=== PATIENT | female | born 1995 | race Caucasian/White ===

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

== ENCOUNTER → 2017-07-21 02:13 | Observation (INO) ==
--- NOTE | 2017-07-21 01:19 | OB/GYN Progress Note ---
Date of Encounter: 07/21/17 Time of Encounter: 01:16 - Assessment and Plan (1) 36 weeks gestation of Current Visit: Yes Status: Acute (2) Encounter for suspected PROM, with rupture of membranes not found Current Visit: Yes Status: Acute Speculum exam shows thick white vaginal discharge, negative ferning, negative pooling, negative nitrazine No change on serial cervical exams, discharged home with when to return to triage, and labor precautions. Patient verbalizes understanding (3) Decreased movement Current Visit: Yes Status: Acute Patient states arriving feels active fetus, reactive tracing Qualifiers: Fetus number: single or unspecified fetus Trimester: third trimester Qualified Code(s): O36.8130 - Decreased movements, third trimester, not applicable or unspecified Subjective - Subjective Interval history: 36+2 weeks gestation presents to triage with complaints of leaking of fluid since 6 PM, Patient states she went to the restroom and then was going again to her shower and felt small gush of fluid go down her leg, no leaking of fluid since. Adequate movement earlier today, has not felt any movement since gush of fluid. Denies vaginal bleeding, or contractions Antepartum ROS: loss of fluid, no vaginal bleeding, no movement normal, no contractions Objective - Exam FHR: auscultation normal FHR comments: Baseline 150 Abdomen: Present: normal appearance, soft, gravid Uterus: Present: normal Cervical dilation: 360/-2
[2017-07-21 01:21] LABS: Amphetamine Screen,Urine Negative ng/mL (Cutoff=1000); Barbiturate Screen,Urine Negative ng/mL (Cutoff=200); Benzodiazepines Screen,Urine Negative ng/mL (Cutoff=200); Cannabinoid Screen,Urine Negative ng/mL (Cutoff = 50); Cocaine Screen,Urine Negative ng/mL (Cutoff= 300); Opiate Screen,Urine Negative ng/mL (Cutoff=300); Phencyclidine Screen,Urine Negative ng/mL (Cutoff=25)
[2017-07-21 02:16] LABS: Gardnerella DNA Not Detected (Not Detect); Trichomonas DNA Not Detected (Not Detect)
[2017-07-21 02:17] LABS: Candida DNA ***DETECTED*** (Not Detect)
== END | disposition home or self-care (01) ==
LOC: 1NENULAB
PROVIDERS: ADMIT Obstetrics & Gynecology; ATTEND Obstetrics & Gynecology

== ENCOUNTER 2017-08-13 06:00 | Inpatient (IN) ==
[2017-08-13] MEDS ORDERED: Metoclopramide 10 MG/2 ML VIAL IVP PRN (06:25)
[2017-08-13] MEDS ORDERED: Famotidine 20 MG/2 ML VIAL IVP PRN (06:25)
[2017-08-13] MEDS ORDERED: Naloxone 0.4 MG/ML INJ IVP PRN (06:25)
[2017-08-13] MEDS ORDERED: *HR* Nalbuphine 20 MG/ML AMPUL IVP PRN (06:25)
[2017-08-13] MEDS ORDERED: Ondansetron 4 MG/2 ML VIAL IVP PRN (06:25)
[2017-08-13] MEDS ORDERED: Ringers Solution, Lactated 1,000 ML IVC SCH (06:30)
[2017-08-13 06:40] LABS: Basophils % 0.1 %; Eosinophils # 0.1 K/mcL (0.0-0.6); Eosinophils % 1.4 %; Hematocrit 29.9 % (35.3-44.9); Hemoglobin 9.4 g/dL (11.5-15.4); Immature Granulocytes % 0.4 % (0-4); Lymphocytes # 1.6 K/mcL (0.6-4.6); Lymphocytes % 23.1 %; Mean Corpuscular HGB Conc 31.4 g/dL (31.6-35.5); Mean Corpuscular Hemoglobin 24.8 pg (28.0-33.3); Mean Corpuscular Volume 78.9 fL (83.0-100.0); Mean Platelet Volume 11.5 fL (9.4-12.4); Monocytes # 0.5 K/mcL (0.0-1.3); Monocytes % 7.5 %; Neutrophils # 4.8 K/mcL (1.6-8.9); Platelet Count 285 K/mcL (140-400); Red Blood Count 3.79 M/mcL (3.82-4.97); Red Cell Distribution Width 14.9 % (11.5-14.5); Segmented Neutrophils % 67.5 %
[2017-08-13 06:45] LABS: Amphetamine Screen,Urine Negative ng/mL (Cutoff=1000); Barbiturate Screen,Urine Negative ng/mL (Cutoff=200); Benzodiazepines Screen,Urine Negative ng/mL (Cutoff=200); Cannabinoid Screen,Urine Negative ng/mL (Cutoff = 50); Cocaine Screen,Urine Negative ng/mL (Cutoff= 300); Opiate Screen,Urine Negative ng/mL (Cutoff=300); Phencyclidine Screen,Urine Negative ng/mL (Cutoff=25)
--- NOTE | 2017-08-13 07:57 | OB/GYN History & Physical ---
Date of Encounter: 08/13/17 Time of Encounter: 07:50 Assessment and Plan (1) and not yet delivered in third trimester Current visit: Yes Status: Acute (2) 39 weeks gestation of Current visit: Yes Status: Acute (3) Elective induction of labor planned Current visit: Yes Status: Acute Patient will be induced with Pitocin plan is to anticipate vaginal delivery History of Present Illness HPI: Ms. Fagan is a 22 year old female 2 para 1 at 39-5/7 weeks by last menstrual period equal to a 9-0/7 week ultrasound who presented for induction of labor secondary to term with favorable cervix. Patient was 3 cm in the office and advised her we would go ahead and induce around her due date. Patient has been having occasional contractions nothing that she can time no leaking of fluid good movement. Patient is GBS negative, rubella positive , Rh+. Past Med Surg Social Fam HX - Past Medical History Source: patient, old records reviewed Medical history: no medical history, other Psychiatric history: no psych history, prior suicide attempt - Past Surgical History Surgical History: other ([place] teeth extraction) - Social History Smoking Status: Never smoker Smokeless Tobacco Status: No Alcohol use: none Drug use: none Occupational status: unemployed Current living situation: Home - Independent Activity Level: Independent ambulation Recent Out of Country Travel Within the Last 8 Weeks: No Exposure or Possible Exposure to Illness During Travel: No - Family History Father Adopted: No Living Status: Still Living Hx Family Cardiac Disorders: No Hx Family Respiratory Disorders: Yes (asthma) Hx Family Cancer: No Hx Family GI Disorders: No Hx Family Genitourinary Disorders: No Hx Family Endocrine Disorder: No Hx Family Musculoskeletal Disorders: No Hx Family Neuromuscular Disorders: No Hx Family Neurologic Disorders: No Hx Family HEENT Disorders: No Hx Family Autoimmune Disorders: No Hx Family Reproductive Disorders: No Hx Family Psychosocial Disorders: No Hx Family Medical Disorders: No - Additional Family History Additional family history: Family history noncontributory Obstetrical History - Pregnancies : 2 Para: 1 Term: 1 : 0 Ab's: 0 Livin Medications and Allergies Ferrous Sulfate 325 mg PO DAILY #30 tablet 08/03/16 [Rx] Pnv95/Ferrous Fumarate/FA [ Vitamin Tablet] 1 tab PO DAILY 08/13/17 [ History] 3 Allergy/AdvReac Type Severity Reaction Status Date / Time No Known Allergies Allergy Verified 03/21/16 16:04 Review of System OB All systems PM: reviewed and no additional remarkable complaints except as stated Exam - Constitutional Constitutional: well developed, well nourished, no acute distress, average body habitus - HEENT HEENT: EOMI, PERRL, Mucus Membranes Moist - Neck Neck exam: full ROM - Lungs Respiratory exam: CTAB - Cardiovascular Cardiovascular exam: RRR - Abdomen Abdomen: Present: bowel sounds normal, gravid - Vagina Vagina: Present: normal moisture - Cervix Dilation: 3 Effacement: 80 Station: -2 ( heart tones 140s reactive contractions every 2 minutes) Results Result Diagrams: 08/13/17 06:30 Abnormal lab results RBC 3.79 M/mcL (3.82-4.97) L 08/13/17 06:30 Hgb 9.4 g/dL (11.5-15.4) L 08/13/17 06:30 Hct 29.9 % (35.3-44.9) L 08/13/17 06:30 MCV 78.9 fL (83.0-100.0) L 08/13/17 06:30 MCH 24.8 pg (28.0-33.3) L 08/13/17 06:30 MCHC 31.4 g/dL (31.6-35.5) L 08/13/17 06:30 RDW 14.9 % (11.5-14.5) H 08/13/17 06:30 All other labs normal. - VTE Reasons for not Prescribing Prophylaxis: Treatment not Indicated - Low risk for VTE
[2017-08-13] MEDS ORDERED: miSOPROStol 25 MCG TABLET PO SCH (08:00)
[2017-08-13] MEDS ORDERED: Oxytocin 20 units/ LR 1000 mL 20 UNIT/1,000 ML BAG IVC SCH ×2 (08:00→21:07)
--- NOTE | 2017-08-13 09:20 | Anesthesia Evaluation PreOp ---
Date of Encounter: 08/13/17 Time of Encounter: 09:02 - Past History Planned Operation: vaginal del, induction Cardiac History: Denies any Significant Hx Pulmonary History: Denies Any Significant HX APPRAISER IRRIGATION TAX History: Other (left hip "sciatic" on occ, not dependent in nature, does not radiate into leg. spoke with patient in regards to being aware of this with epidural and not feeling pain in hip. resulting in nerve damage. verbalized understanding) Other Medical History: Denies Any Significant HX Anesthesia History: No Prior Anesthetic Complications, Past Anesthesia Alcohol Use: none Drug use: none Medications and Allergies Ferrous Sulfate 325 mg PO DAILY #30 tablet 08/03/16 [Rx] Pnv95/Ferrous Fumarate/FA [ Vitamin Tablet] 1 tab PO DAILY 08/13/17 [ History] 3 Allergy/AdvReac Type Severity Reaction Status Date / Time No Known Allergies Allergy Verified 03/21/16 16:04 Anesthesia Results - Labs 08/13/17 06:30 Anesthesia Exam - HEENT Pupil (Motor): Pupils equal Mallampati: II Teeth: Normal Oral Opening: Greater than 3 - APPRAISER IRRIGATION TAX LOC: Oriented APPRAISER IRRIGATION TAX Motor: Normal RUE, Normal LUE, Normal RLE, Normal LLE, Normal Face APPRAISER IRRIGATION TAX Sensory: Normal: RUE, LUE, RLE, LLE, Face - Cardiac Rhythm: Regular Murmur: None - Pulmonary Breath Sounds: bilateral Clear Respiratory Effort: Symmetrical Anesthesia Assess/Plan ASA Score: 2 Modified [place] Scale for Level of Consciousness: Cooperative, oriented, and tranquil Anesthetic Plan: General, Regional Monitoring Plan: Standard Monitors Recovery Plan: PACU
[2017-08-13] MEDS ORDERED: Epidural Premix (fent/bupiv) 110 ML EP ONE (09:53)
[2017-08-13] MEDS ORDERED: Epidural Premix (fent/bupiv) 110 ML EP SCH (10:00)
--- NOTE | 2017-08-13 11:38 | OB Labor Progress Note ---
Date of Encounter: 08/13/17 Time of Encounter: 11:30 Labor Progress Note - Subjective Subjective: patient is still comfortable contractions are getting stronger - Cervix Cervix: 4/90/-1 AROM clear fluid - Heart Tones Heart Tones: FHT's 140's reactive - Teachey Teachey: IUPC placed contractions every 2 min - Plan Plan: anticipate
--- NOTE | 2017-08-13 13:42 | Anesthesia Procedures ---
Date of Encounter: 08/13/17 Time of Encounter: 13:41 Procedures: Anesthesia - Epidural/Spinal Patient ID/Chart reviewed: Yes Patient examined: Yes OB Eval: Gestational age: term OB Eval: : 2 OB Eval: Hx Para: 1 OB Eval: Contractions: Non-stressed pattern Consent Obtained: Yes Supplemental Oxygen: None/Room Air Site Prep: Aseptic Technique, Sterile prep and drape, 0.5% Chlorhexidine/Alcohol Patient position: upright Local Anesthetic: Lidocaine 1% Amount of Local Anesthetic used: 2 Touhy Needle Gauge: 18 Touhy Needle Depth (cm): 6 Test Dose (1.5% Lido + Epi): Volume given (mls): 3 Test Dose Result: Negative Loading Dose: Other: 10 from solution Loading Dose Administered: Thru Catheter Infusion Med: 0.125% Bupivacaine w/ 2 mcg/ml Fentanyl Infusion Rate (mls/hr): [address]: Tegaderm, Tape Interspace Used: L3-L4 Loss of Resistance (AMALIA): Yes (saline) Blood: No CSF: No Paresthesia: No Procedure: vss though out procedure, FHR stable per RN;s
[2017-08-13] MEDS ORDERED: Ondansetron 4 MG/2 ML VIAL ONE (14:13)
[2017-08-13] MEDS ORDERED: *HR* Ropivacaine/PF 0.2% 20 ML VIAL ONE (16:51)
[2017-08-13] MEDS ORDERED: *HR* FentaNYL (PF) 100 MCG/2 ML VIAL ONE (17:09)
[2017-08-13] MEDS ORDERED: Lidocaine/EPI 1:200k 2% PF 20 ML VIAL ONE (17:10)
--- NOTE | 2017-08-13 18:37 | OB/GYN Procedure Note ---
Delivery - Delivery Date: 08/13/17 Provider: Krish Eduardo Intrapartum events: none Delivery induction: oxytocin Delivery augmentation: rupture of membranes Delivery monitor: external FHT, external uterine, internal uterine Anesthesia: epidural Estimated Blood Loss: 100 - Infant (s) A Infant Delivery Date: 08/13/17 Infant Delivery Time: 18:17 Presentation: vertex Position: BESS Route of delivery: Gender: Male Viability: Viable Pounds: 7 Ounces: 5 Weight Gram: 3.301 kg at 1 minute: 7 at 5 mins: 9 Shoulder Dystocia: not encountered Specimens collected: cord blood Placenta: spontaneous Cord: nuchal cord, 3 umbilical vessels, nuchal reduced - Repair Episiotomy: none Laceration Description: Labial (right) - Complications Delivery complications: none Delivery comments: Patient is a 22-year-old 2 para 1 at 39-5/7 weeks who presented for induction of labor secondary to term with favorable cervix. Patient is 33 cm on admission ainsley and Pitocin was started patient was artificially ruptured with clear fluid became uncomfortable and epidural was placed patient progressed appropriately became complete and pushed for approximately 10 minutes delivering a viable male in right occiput anterior presentation at 1817 there was a nuchal cord 1 loose and reduced was no meconium the was bulb suctioned the abdomen Apgars were 7 at 1 minute , 9 at 5 minutes, infant weight was 7 lbs. 5 oz. Placenta was delivered spontaneously with a three-vessel cord, community engagement specialist at the [facility] epidural, estimate blood loss 100 mL. She had a right labial laceration repaired with 4-0 Monocryl in the usual fashion. Cervix and vagina was visualized intact. She will be observed 2 hours before being taken floor. - Disposition Mom disposition: stable in LDR disposition: stable in LDR
[2017-08-13] MEDS ORDERED: Measles/Mumps/Rubella Vacc 0.5 ML VIAL SQ PRN (21:07)
[2017-08-13] MEDS ORDERED: Acetaminophen 325 MG TABLET PO PRN (21:07)
[2017-08-13] MEDS ORDERED: *HR* HYDROcodone/Acet 5/325 mg TABLET PO PRN (21:07)
[2017-08-13] MEDS: Ibuprofen 600 MG TABLET PO PRN (22:06)
[2017-08-13 22:42] LABS: Alanine Aminotransferase 5 Units/L (7-52); Aspartate Amino Transferase 18 Units/L (13-39); BUN/Creatinine Ratio 11 (6-26); Blood Urea Nitrogen 7 mg/dL (6-20); Lactate Dehydrogenase 209 Units/L (140-271); Uric Acid 5.5 mg/dL (2.3-7.6); eGFR For African Americans > 60 (> 60); eGFR For Non-African Americans > 60 (> 60)
[2017-08-13 22:44] LABS: Basophils % 0.1 %; Eosinophils % 0.1 %; Hematocrit 30.7 % (35.3-44.9); Hemoglobin 9.6 g/dL (11.5-15.4); Immature Granulocytes % 0.5 % (0-4); Lymphocytes # 1.3 K/mcL (0.6-4.6); Lymphocytes % 8.9 %; Mean Corpuscular HGB Conc 31.3 g/dL (31.6-35.5); Mean Corpuscular Hemoglobin 24.9 pg (28.0-33.3); Mean Corpuscular Volume 79.5 fL (83.0-100.0); Mean Platelet Volume 11.8 fL (9.4-12.4); Monocytes # 0.8 K/mcL (0.0-1.3); Monocytes % 5.6 %; Neutrophils # 12.6 K/mcL (1.6-8.9); Platelet Count 255 K/mcL (140-400); Red Blood Count 3.86 M/mcL (3.82-4.97); Red Cell Distribution Width 14.9 % (11.5-14.5); Segmented Neutrophils % 84.8 %
[2017-08-14 04:24] LABS: Basophils % 0.1 %; Eosinophils # 0.1 K/mcL (0.0-0.6); Eosinophils % 0.7 %; Hematocrit 25.4 % (35.3-44.9); Immature Granulocytes % 0.3 % (0-4); Lymphocytes # 1.6 K/mcL (0.6-4.6); Lymphocytes % 14.2 %; Mean Corpuscular HGB Conc 31.1 g/dL (31.6-35.5); Mean Corpuscular Volume 80.4 fL (83.0-100.0); Mean Platelet Volume 11.3 fL (9.4-12.4); Monocytes # 0.7 K/mcL (0.0-1.3); Monocytes % 6.2 %; Neutrophils # 9.1 K/mcL (1.6-8.9); Nucleated Red Blood Cells 0.2 /100 WBC (0); Platelet Count 203 K/mcL (140-400); Red Blood Count 3.16 M/mcL (3.82-4.97); Red Cell Distribution Width 14.9 % (11.5-14.5); Segmented Neutrophils % 78.5 %
[2017-08-14 04:27] LABS: Hemoglobin 7.9 g/dL (11.5-15.4)
[2017-08-14 08:06] VITALS: BP 122/77
[2017-08-14] MEDS: Ibuprofen 600 MG TABLET PO PRN (08:42)
[2017-08-14] MEDS ORDERED: Prenatal Vit/FA 1 EACH TABLET PO SCH (09:00)
--- NOTE | 2017-08-14 09:23 | Discharge Summary ---
Date of Encounter: 08/14/17 Time of Encounter: 09:30 - Discharge Diagnosis (1) Status post vaginal delivery Priority: Primary Status: Acute Comments: s/p spontaneous vaginal delivery day #1 Patient is doing well VSS Pain is well controlled Lochia is light and without clots Voiding without difficulty Passing gas but has not had bowel movement yet Tolerating regular diet without difficulty. Reports that she has breastpump at home Discharge to guest (2) Anemia affecting Priority: Secondary Status: Acute Comments: Continue with ferrous sulfate 325 PO BID Qualifiers: Trimester: unspecified trimester Qualified Code(s): O99.019 - Anemia complicating , unspecified trimester - Discharge Medications Prescriptions: Ibuprofen [Motrin] 600 mg PO Q8HR PRN #30 tab PRN Reason: Mild Pain Docusate [Colace] 100 mg PO BID #60 capsule Ferrous Sulfate 325 mg PO BID #60 tablet Home Medications: Ferrous Sulfate 325 mg PO DAILY #30 tablet 08/03/16 [Rx] Pnv95/Ferrous Fumarate/FA [ Vitamin Tablet] 1 tab PO DAILY 08/13/17 [ History] Docusate [Colace] 100 mg PO BID #60 capsule 08/14/17 [Rx] Ferrous Sulfate 325 mg PO BID #60 tablet 08/14/17 [Rx] Ibuprofen [Motrin] 600 mg PO Q8HR PRN #30 tab 08/14/17 [Rx] Allergies/Adverse Reactions: 3 Allergy/AdvReac Type Severity Reaction Status Date / Time No Known Allergies Allergy Verified 03/21/16 16:04 Data Procedures and tests throughout hospitalization: Laboratory Tests 08/13/17 08/13/17 08/13/17 06:30 06:30 22:11 WBC 7.1 14.8 H D RBC 3.79 L 3.86 Hgb 9.4 L 9.6 L Hct 29.9 L 30.7 L MCV 78.9 L 79.5 L MCH 24.8 L 24.9 L MCHC 31.4 L 31.3 L RDW 14.9 H 14.9 H Plt Count 285 255 MPV 11.5 11.8 Immature Gran % 0.4 0.5 Seg Neutrophils % 67.5 84.8 Lymphocytes % 23.1 8.9 Monocytes % 7.5 5.6 Eosinophils % 1.4 0.1 Basophils % 0.1 0.1 Neutrophils # 4.8 12.6 H Lymphocytes # 1.6 1.3 Monocytes # 0.5 0.8 Eosinophils # 0.1 0.0 Basophils # 0.0 0.0 Nucleated RBCs/100 WBC BUN Creatinine Est GFR ( Amer) Est GFR (Non-Af Amer) BUN/Creatinine Ratio Uric Acid AST ALT Lactate Dehydrogenase Urine Opiates Screen Negative Ur Barbiturates Screen Negative Ur Phencyclidine Scrn Negative Ur Amphetamines Screen Negative U Benzodiazepines Scrn Negative Urine Cocaine Screen Negative U Marijuana (THC) Screen Negative 08/13/17 08/14/17 22:11 04:12 WBC 11.5 H RBC 3.16 L Hgb 7.9 L D Hct 25.4 L MCV 80.4 L MCH 25.0 L MCHC 31.1 L RDW 14.9 H Plt Count 203 MPV 11.3 Immature Gran % 0.3 Seg Neutrophils % 78.5 Lymphocytes % 14.2 Monocytes % 6.2 Eosinophils % 0.7 Basophils % 0.1 Neutrophils # 9.1 H Lymphocytes # 1.6 Monocytes # 0.7 Eosinophils # 0.1 Basophils # 0.0 Nucleated RBCs/100 WBC 0.2 H BUN 7 Creatinine 0.66 Est GFR ( Amer) > 60 Est GFR (Non-Af Amer) > 60 BUN/Creatinine Ratio 11 Uric Acid 5.5 AST 18 ALT 5 L Lactate Dehydrogenase 209 Urine Opiates Screen Ur Barbiturates Screen Ur Phencyclidine Scrn Ur Amphetamines Screen U Benzodiazepines Scrn Urine Cocaine Screen U Marijuana (THC) Screen Labs on day of discharge: Labs from last 24 hours 08/14/17 08/13/17 08/13/17 04:12 22:11 22:11 WBC 11.5 H 14.8 H D RBC 3.16 L 3.86 Hgb 7.9 L D 9.6 L Hct 25.4 L 30.7 L MCV 80.4 L 79.5 L MCH 25.0 L 24.9 L MCHC 31.1 L 31.3 L RDW 14.9 H 14.9 H Plt Count 203 255 MPV 11.3 11.8 Immature Gran % 0.3 0.5 Seg Neutrophils % 78.5 84.8 Lymphocytes % 14.2 8.9 Monocytes % 6.2 5.6 Eosinophils % 0.7 0.1 Basophils % 0.1 0.1 Neutrophils # 9.1 H 12.6 H Lymphocytes # 1.6 1.3 Monocytes # 0.7 0.8 Eosinophils # 0.1 0.0 Basophils # 0.0 0.0 Nucleated RBCs/100 WBC 0.2 H BUN 7 Creatinine 0.66 Est GFR ( Amer) > 60 Est GFR (Non-Af Amer) > 60 BUN/Creatinine Ratio 11 Uric Acid 5.5 AST 18 ALT 5 L Lactate Dehydrogenase 209 Date of admission: 08/13/17 06:03 Primary care physician: PCP NONE Consults: 08/13/17 21:07 Consult to Oil Transport Driver [CONS] Routine Comment: Vaginal delivery, consult needed Discharging clinician: Иван Mendez Anticipated date of discharge: 08/14/17 - Patient Status Disposition: Home, Self-Care Condition: Good Functional capacity at discharge: independent ambulation Overall status at discharge: patient is back to baseline - Discharge Instructions Follow Up With: NONE,PCP [Primary Care Provider] - Krish Eduardo, DO [Partnered Physician] - - Diet and Activity Activity: increase activity as tolerated Diet: regular diet Hospital Course Reason for admission: induction of labor Delivery: Episiotomy: none Laceration: other (right labial laceration) complications: none Discharge diagnosis: IUP at term delivered baby: male Hospital course: Delivery - Delivery Date: 08/13/17 Provider: Krish Eduardo Intrapartum events: none Delivery induction: oxytocin Delivery augmentation: rupture of membranes Delivery monitor: external FHT, external uterine, internal uterine Anesthesia: epidural Estimated Blood Loss: 100 - Infant (s) A Delivery Date: 08/13/17 Infant Delivery Time: 18:17 Presentation: vertex Position: BESS Route of delivery: Gender: Male Viability: Viable Pounds: 7 Ounces: 5 Weight Gram: 3.301 kg at 1 minute: 7 at 5 mins: 9 Shoulder Dystocia: not encountered Specimens collected: cord blood Placenta: spontaneous Cord: nuchal cord, 3 umbilical vessels, nuchal reduced - Repair Episiotomy: none Laceration Description: Labial (right) - Complications Delivery complications: none Time Attestation: Total time spent providing and/or coordinating discharge services: Time Spent: Less than 30 minutes Exam - Constitutional Vitals: Temp Pulse Resp BP Pulse Ox 98.0 F 74 16 122/77 97 08/14/17 08:02 08/14/17 08:02 08/14/17 08:02 08/14/17 08:02 08/14/17 04:20 General appearance IM: A&O X 3 - Respiratory Respiratory exam: Present: CTAB - Cardiovascular Cardiovascular exam IM: Present: RRR, +S1, +S2 - GI/Abdominal GI/Abdominal exam IM: normal bowel sounds - Uterine Tone: Firm Uterus Position: 1 Finger Below Umbilicus, Midline - Extremities Exam Extremities exam IM: Present: full ROM, normal capillary refill, warm, radial pulses palpable and symmetrical - Neurological Exam Neurological exam: oriented X3 - Psychiatric Additional comments: Patient is in good mood - Attending Attestation I examined this patient and my medical decision-making was reviewed with the Resident Physician. I agree with the documented findings, disposition and treatment plan as described. Chico Jones CNM
== END 2017-08-14 13:38 | disposition home or self-care (01) | DRG 775 ==
LOC: 1NENULAB 06:03 → 1NENUOBS 21:27
PROVIDERS: ADMIT Obstetrics & Gynecology; ATTEND Obstetrics & Gynecology

== ENCOUNTER 2019-05-29 08:00 | Inpatient (IN) ==
[2019-05-29] MEDS ORDERED: Naloxone 0.4 MG/ML INJ IVP PRN (08:56)
[2019-05-29] MEDS ORDERED: Lidocaine 1% 20 ML MDV ID PRN (08:56)
[2019-05-29] MEDS ORDERED: Ondansetron 4 MG/2 ML VIAL IVP PRN (08:56)
[2019-05-29] MEDS ORDERED: Metoclopramide 10 MG/2 ML VIAL IVP PRN (08:56)
[2019-05-29] MEDS ORDERED: *HR* Nalbuphine 10 MG/ML AMPUL IVP PRN (08:56)
[2019-05-29] MEDS ORDERED: Famotidine 20 MG/2 ML VIAL IVP PRN (08:56)
[2019-05-29] MEDS ORDERED: Ringers Solution, Lactated 1,000 ML IVC SCH (09:00)
[2019-05-29 09:10] LABS: Basophils % 0.2 %; Eosinophils # 0.1 K/mcL (0.0-0.6); Eosinophils % 1.2 %; Hemoglobin 8.4 g/dL (11.5-15.4); Immature Granulocytes % 0.2 % (0-4); Lymphocytes # 1.5 K/mcL (0.6-4.6); Lymphocytes % 22.7 %; Mean Corpuscular HGB Conc 31.1 g/dL (31.6-35.5); Mean Corpuscular Hemoglobin 24.3 pg (28.0-33.3); Monocytes # 0.5 K/mcL (0.0-1.3); Monocytes % 7.6 %; Neutrophils # 4.5 K/mcL (1.6-8.9); Platelet Count 274 K/mcL (140-400); Red Blood Count 3.46 M/mcL (3.82-4.97); Red Cell Distribution Width 15.4 % (11.5-14.5); Segmented Neutrophils % 68.1 %; White Blood Count 6.6 K/mcL (4.3-11.1)
[2019-05-29 10:33] LABS: Amphetamine Screen,Urine Negative ng/mL (Cutoff=1000); Barbiturate Screen,Urine Negative ng/mL (Cutoff=200); Benzodiazepines Screen,Urine Negative ng/mL (Cutoff=200); Cannabinoid Screen,Urine Negative ng/mL (Cutoff = 50); Cocaine Screen,Urine Negative ng/mL (Cutoff= 300); Opiate Screen,Urine Negative ng/mL (Cutoff=300); Phencyclidine Screen,Urine Negative ng/mL (Cutoff=25)
[2019-05-29] MEDS ORDERED: miSOPROStoL 25 MCG TABLET PO SCH (10:45)
[2019-05-29] MEDS ORDERED: Oxytocin 20 units/ LR 1000 mL 20 UNIT/1,000 ML BAG IVC SCH (18:45)
[2019-05-29] MEDS ORDERED: Bupivacaine-MPF 0.25% 10 ML VIAL EP ONE (20:37)
[2019-05-29] MEDS ORDERED: *HR* FentaNYL (PF) 100 MCG/2 ML VIAL EP ONE (20:37)
[2019-05-29] MEDS ORDERED: EPHEDrine 50 MG/ML VIAL IVP PRN (20:37)
[2019-05-29] MEDS ORDERED: Epidural Premix (fent/bupiv) 110 ML EP ONE (20:43)
[2019-05-29] MEDS ORDERED: Epidural Premix (fent/bupiv) 110 ML EP SCH (20:45)
[2019-05-30] MEDS ORDERED: Oxytocin 20 units/ LR 1000 mL 20 UNIT/1,000 ML BAG IVC SCH (01:32)
[2019-05-30] MEDS ORDERED: Benzocaine/Menthol 56 GM AEROSOL SPRAY TP PRN (01:32)
[2019-05-30] MEDS ORDERED: Acetaminophen 325 MG TABLET PO PRN (01:32)
[2019-05-30] MEDS ORDERED: Lanolin 7 G OINT...G. TP PRN (01:32)
[2019-05-30] MEDS: Ibuprofen 600 MG TABLET PO PRN ×2 (07:00→20:00)
[2019-05-30 07:33] LABS: Basophils % 0.2 %; Eosinophils % 0.3 %; Hematocrit 27.1 % (35.3-44.9); Hemoglobin 8.4 g/dL (11.5-15.4); Immature Granulocytes % 0.4 % (0-4); Lymphocytes # 1.4 K/mcL (0.6-4.6); Mean Corpuscular Hemoglobin 23.9 pg (28.0-33.3); Mean Corpuscular Volume 77.2 fL (83.0-100.0); Mean Platelet Volume 11.2 fL (9.4-12.4); Monocytes # 0.5 K/mcL (0.0-1.3); Monocytes % 5.6 %; Neutrophils # 7.7 K/mcL (1.6-8.9); Platelet Count 255 K/mcL (140-400); Red Blood Count 3.51 M/mcL (3.82-4.97); Red Cell Distribution Width 15.4 % (11.5-14.5); Segmented Neutrophils % 79.5 %; White Blood Count 9.7 K/mcL (4.3-11.1)
[2019-05-30] MEDS: Prenatal Vit/FA 1 EACH TABLET PO SCH (09:41)
[2019-05-31] MEDS: Ibuprofen 600 MG TABLET PO PRN ×2 (01:47→08:36)
[2019-05-31 07:59] VITALS: BP 114/74
[2019-05-31] MEDS: Prenatal Vit/FA 1 EACH TABLET PO SCH (08:36)
== END 2019-05-31 10:05 | disposition home or self-care (01) | DRG 807 ==
LOC: 1NENULAB 08:18 → 1NENUOBS 05-30 02:39
PROVIDERS: ADMIT Advanced Practice Midwife; ATTEND Advanced Practice Midwife

== ENCOUNTER → 2021-04-06 18:25 | Observation (INO) ==
[2021-04-06 17:29] LABS: Bacteria,Urine Few per hpf (None-Few); Bilirubin,Urine Negative (Negative); Blood,Urine Negative (Negative); Clarity,Urine Turbid (Clear); Color,Urine Yellow (Yellow); Glucose,Urine (UA) Normal (Normal); Ketones,Urine Negative (Negative); Leukocyte Esterase,Urine Moderate (Negative); Mucus,Urine Few per lpf (None-Few); Nitrite,Urine Negative (Negative); PH,Urine 6.5 pH Units (5.0-8.0); Protein,Urine 30 mg/dL (Neg-Trace); RBC,Urine 0-3 per hpf (0-3); Specific Gravity,Urine 1.028 (1.010-1.025); Squamous Epithelial Cell,Urine Moderate per hpf (None-Few); Urobilinogen,Urine Normal (Normal)
== END | disposition home or self-care (01) ==
LOC: 1NENULAB
PROVIDERS: ADMIT Advanced Practice Midwife; ATTEND Advanced Practice Midwife

== ENCOUNTER 2021-06-20 02:31 | Inpatient (IN) ==
[2021-06-20] MEDS ORDERED: *HR* Nalbuphine 10 MG/ML AMPUL IV PRN (02:45)
[2021-06-20] MEDS ORDERED: Ondansetron 4 MG/2 ML VIAL IVP PRN (02:45)
[2021-06-20] MEDS ORDERED: Metoclopramide 10 MG/2 ML VIAL IVP PRN (02:45)
[2021-06-20] MEDS ORDERED: Famotidine 20 MG/2 ML VIAL IVP PRN (02:45)
[2021-06-20] MEDS ORDERED: Naloxone 0.4 MG/ML INJ IVP PRN (02:45)
[2021-06-20] MEDS ORDERED: Ringers Solution, Lactated 1,000 ML IVC SCH (02:45)
[2021-06-20 03:01] LABS: Basophils % 0.2 %; Eosinophils # 0.1 K/mcL (0.0-0.6); Eosinophils % 0.6 %; Hemoglobin 8.8 g/dL (11.5-15.4); Immature Granulocytes % 0.2 % (0-4); Lymphocytes # 1.8 K/mcL (0.6-4.6); Lymphocytes % 20.2 %; Mean Corpuscular HGB Conc 29.3 g/dL (31.6-35.5); Mean Corpuscular Hemoglobin 23.3 pg (28.0-33.3); Mean Corpuscular Volume 79.4 fL (83.0-100.0); Mean Platelet Volume 11.2 fL (9.4-12.4); Monocytes # 0.6 K/mcL (0.0-1.3); Monocytes % 6.3 %; Neutrophils # 6.5 K/mcL (1.6-8.9); Platelet Count 316 K/mcL (140-400); Red Blood Count 3.78 M/mcL (3.82-4.97); Red Cell Distribution Width 15.6 % (11.5-14.5); Segmented Neutrophils % 72.5 %
[2021-06-20] MEDS ORDERED: Oxytocin 20 units/ LR 1000 mL 20 UNIT/1,000 ML BAG IVC ONE (03:07)
[2021-06-20 03:09] LABS: Amphetamine Screen,Urine Negative ng/mL (Cutoff=1000); Barbiturate Screen,Urine Negative ng/mL (Cutoff=200); Benzodiazepines Screen,Urine Negative ng/mL (Cutoff=200); Cannabinoid Screen,Urine Negative ng/mL (Cutoff = 50); Cocaine Screen,Urine Negative ng/mL (Cutoff= 300); Opiate Screen,Urine Negative ng/mL (Cutoff=300); Phencyclidine Screen,Urine Negative ng/mL (Cutoff=25)
[2021-06-20 03:35] LABS: Influenza A PCR Negative (Negative); Influenza B PCR Negative (Negative); Resp. Syncytial Virus PCR Negative (Negative)
[2021-06-20 03:36] LABS: SARS-CoV-2 by PCR (In House) Negative (Negative)
[2021-06-20] MEDS ORDERED: Benzocaine/Menthol 56 GM AEROSOL SPRAY TP PRN ×2 (05:53→08:33)
[2021-06-20] MEDS ORDERED: Oxytocin 20 units/ LR 1000 mL 20 UNIT/1,000 ML BAG IVC SCH (05:53)
[2021-06-20] MEDS ORDERED: Lanolin 7 G OINT...G. TP PRN ×2 (05:53→08:33)
[2021-06-20] MEDS ORDERED: Ondansetron ODT 4 MG TAB.RAPDIS SL PRN ×2 (05:53→08:33)
[2021-06-20] MEDS ORDERED: Acetaminophen 325 MG TABLET PO SCH (05:53)
[2021-06-20] MEDS ORDERED: EPHEDrine 50 MG/ML VIAL IVP PRN (06:01)
[2021-06-20] MEDS ORDERED: Epidural Premix (fent/bupiv) 110 ML EP SCH (06:15)
[2021-06-20] MEDS ORDERED: Ibuprofen 600 MG TABLET PO SCH (08:33)
[2021-06-20] MEDS: Prenatal Vit/FA 1 EACH TABLET PO SCH (08:58)
[2021-06-20] MEDS: Ibuprofen 600 MG TABLET PO SCH ×2 (08:58→18:47)
[2021-06-20] MEDS ORDERED: Prenatal Vit/FA 1 EACH TABLET PO SCH (09:00)
[2021-06-20] MEDS ORDERED: *HR* Oxytocin 10 UNIT/ML VIAL IM ONE (09:49)
[2021-06-20] MEDS: Acetaminophen 325 MG TABLET PO SCH ×2 (10:26→18:47)
[2021-06-21] MEDS: Acetaminophen 325 MG TABLET PO SCH ×2 (00:22→05:49)
[2021-06-21] MEDS: Ibuprofen 600 MG TABLET PO SCH ×2 (00:22→05:50)
[2021-06-21 07:27] VITALS: BP 109/63; PULSE 79; TEMP 98; O2SAT 98
[2021-06-21] MEDS: Prenatal Vit/FA 1 EACH TABLET PO SCH (07:34)
== END 2021-06-21 09:50 | disposition home or self-care (01) | DRG 807 ==
LOC: 1NENULAB 02:31 → 1NENUOBS 07:47
PROVIDERS: ADMIT Student in an Organized Health Care Education/Training Program; ATTEND Student in an Organized Health Care Education/Training Program